=== PATIENT | male | born 1960 | race Caucasian/White ===

== ENCOUNTER 2019-10-08 03:24 | Inpatient (IN) ==
[2019-10-08] MEDS ORDERED: PHENERGAN PO ONE (03:45)
[2019-10-08] MEDS ORDERED: TYLENOL PO ONE (04:18)
[2019-10-08] MEDS ORDERED: NS 1,000 ML IV ONE ×4 (04:28→10:41)
--- NOTE | 2019-10-08 04:30 | PROVIDER DOCUMENTATION ---
HPI-Fever - General Chief Complaint: Flu Symptoms Stated Complaint: n/v aching all over,tach Time Seen by Provider: 10/08/19 03:45 Source: patient, police Allergies/Adverse Reactions: Patient Allergies Allergy/AdvReac Type Severity Reaction Status Date / Time fluphenazine [From Prolixin] Allergy Unknown Verified 10/08/19 03:29 haloperidol [From Haldol] Allergy Unknown Verified 10/08/19 03:30 Home Medications: Home Medication List Medication Instructions Recorded Confirmed Last Taken Type Atorvastatin Calcium [Lipitor] 10 mg PO DAILY 10/08/19 10/08/19 Unknown History Ginkgo Biloba 80 mg PO TID 10/08/19 10/08/19 Unknown History - History of Present Illness-Fever Nature of Presenting Problem: Patient is a 59 year old white male, prisoner at residential, who presents from senior care with reported fever and hypotension since yesterday. Review of Systems - Adult - REVIEW OF SYSTEMS - ADULT Constitutional: reports: chills, fever Eyes: reports: no symptoms reported Ears, Nose, Mouth & Throat: reports: other (nasal congestion) Cardiovascular: denies: chest pain Respiratory: reports: cough Gastrointestinal: reports: see HPI Genitourinary: reports: no symptoms reported Musculoskeletal: reports: muscle aches Integumentary: denies: rash Neurological: reports: see HPI Psychiatric: reports: anxiety Endocrine: reports: no symptoms reported Hematologic/Lymphatic: reports: no symptoms reported Allergic/Immunologic: reports: no symptoms reported All Other Systems: Reviewed and Negative Past History - Adult - PAST MEDICAL HISTORY-ADULT Review of Records: reports: Old Records Reviewed, Nursing Assessment Review, Medications Reviewed, Social history reviewed & non-contributory. Major Childhood Illnesses: reports: denies history Cardiovascular: reports: denies history Respiratory: reports: COPD Endocrine/Immune: reports: denies history - PRIOR SURGERIES/PROCEDURES Surgical/Procedure History: reports: none - FAMILY HISTORY Family History: reviewed, not pertinent - SOCIAL HISTORY Smoking: greater than 1 pack/day Substance Use: denies Living Situation: other (state fdc) Physical Exam-General - CONSTITUTIONAL General Appearance: alert, no apparent distress, other (ambulatory) - EYES Eyes: other (clear) - HEAD, EARS, NOSE, MOUTH & THROAT HENMT: other (nasal congestion) - NECK Neck: supple - RESPIRATORY Respiratory: no respiratory distress, no accessory muscle use, decreased breath sounds - CARDIOVASCULAR Cardiovascular: tachycardia - GASTROINTESTINAL (ABDOMEN) Abdominal Exam: soft, tenderness (vague). negative: guarding, rebound - LYMPHATIC Lymphatic: no adenopathy - MUSCULOSKELETAL Back Exam: normal inspection, no CVA tenderness Extremity: normal range of motion, non-tender Peripheral Pulses: radial (R): 2+, radial (L): 2+ - SKIN Integumentary: normal color, warm/dry - NEUROLOGIC Neurologic: grossly normal - PSYCHIATRIC Psych/Mental Status: oriented x 3, anxious Progress - PLAN OF CARE/RESULTS Progress/Plan/Lab Results: Vital Signs - 8 hr 10/08/19 03:24 10/08/19 05:09 10/08/19 06:14 Temperature 99.7 F H 101.5 F H 99.1 F Pulse Rate 118 H 113 H 103 H Respiratory Rate 20 20 20 Blood Pressure 91/62 106/75 110/72 O2 Sat by Pulse Oximetry 95 100 96 Laboratory Results - last 24 hr 10/08/19 10/08/19 10/08/19 04:00 04:46 04:46 WBC 18.14 H RBC 4.52 L Hgb 14.4 Hct 42.5 MCV 94.0 MCH 31.9 H MCHC 33.9 RDW Std Deviation 13.2 Plt Count 168 MPV 10.4 Immature Gran % (Auto) 0.2 Neut % (Auto) 79.9 H Lymph % (Auto) 8.8 L [place] % (Auto) 10.7 H Eos % (Auto) 0.2 Baso % (Auto) 0.2 Immature Gran # (Auto) 0.04 Neut # (Auto) 14.50 H Lymph # (Auto) 1.60 [place] # (Auto) 1.94 H Eos # (Auto) 0.03 Baso # (Auto) 0.03 Sodium 138 Potassium 3.8 Chloride 101 Carbon Dioxide 22 L Anion Gap 15 BUN 9 Creatinine 0.5 L Estimated GFR/1.73 m2 > 60 BUN/Creatinine Ratio 18 Glucose 107 H Calculated Osmolality 275 Calcium 9.1 Total Bilirubin 0.80 AST 22 ALT 25 Alkaline Phosphatase 78 Total Protein 7.1 Albumin 4.2 Globulin 3.0 Albumin/Globulin Ratio 1.0 Plasma Lactate Influenza A (Rapid) NEGATIVE Influenza B (Rapid) NEGATIVE 10/08/19 04:46 WBC RBC Hgb Hct MCV MCH MCHC RDW Std Deviation Plt Count MPV Immature Gran % (Auto) Neut % (Auto) Lymph % (Auto) [place] % (Auto) Eos % (Auto) Baso % (Auto) Immature Gran # (Auto) Neut # (Auto) Lymph # (Auto) [place] # (Auto) Eos # (Auto) Baso # (Auto) Sodium Potassium Chloride Carbon Dioxide Anion Gap BUN Creatinine Estimated GFR/1.73 m2 BUN/Creatinine Ratio Glucose Calculated Osmolality Calcium Total Bilirubin AST ALT Alkaline Phosphatase Total Protein Albumin Globulin Albumin/Globulin Ratio Plasma Lactate 0.8 Influenza A (Rapid) Influenza B (Rapid) Orders Category Date Time Status Admit - [facility] Routine AdmDCTranf 10/08/19 06:24 Active Activity - Strict Bedrest ORDERED Care 10/08/19 06:24 Active Orthostatic Vital Signs NOW Care 10/08/19 04:28 Active Resuscitation Status Routine Care 10/08/19 06:24 Ordered Vital Signs Order Q 4-HR ASSESS Care 10/08/19 06:24 Active Z-Document. for Tele Applied ORDERED Care 10/08/19 06:25 Active Heart Healthy Diet Diet 10/08/19 06:26 Active CHEST-2 VIEWS [RAD] Stat Exams 10/08/19 04:27 Taken BLOOD CULTURE [BLDCUL] Stat Lab 10/08/19 05:05 Ordered CBC WITH ELECTRONIC DIFF [HEME] Stat Lab 10/08/19 04:46 Completed CMP [COMPREHENSIVE METABOLIC PANEL] [CHEM] Stat Lab 10/08/19 04:[address] Stat Lab 10/08/19 04:00 Completed LACTATE, PLASMA [CHEM] Stat Lab 10/08/19 04:46 Completed URINALYSIS W/POSS RFLX CULT [URINALYSIS] Stat Lab 10/08/19 05:57 Uncollected 0.9% Sodium Chloride Inj [Ns] 1,000 ml Med 10/08/19 04:28 Discontinued IV 999 mls/hr 0.9% Sodium Chloride Inj [Ns] 1,000 ml Med 10/08/19 05:56 Active IV 999 mls/hr Acetaminophen [Tylenol] Med 10/08/19 04:18 Discontinued 650 mg PO NOW ONE Acetaminophen [Tylenol] Med 10/08/19 06:24 Ordered 650 mg PO Q6H PRN PRN Albuterol 2.5MG/Ipratrop 0.5MG [Duoneb (A & A)] Med 10/08/19 07:30 Ordered 3 ml INH RTQ4H Azithromycin 500 mg/Ns [Zithromax 500 mg/Ns] Med 10/08/19 06:24 Active 500 mg in 250 ml IV NOW Azithromycin 500 mg/Ns [Zithromax 500 mg/Ns] Med 10/09/19 06:30 Active 500 mg in 250 ml IV Q24H CefTRIAXONE [Rocephin] 1 gm Med 10/08/19 05:56 Discontinued 0.9% Sodium Chloride Inj [Ns] 50 ml IV NOW Promethazine [Phenergan] Med 10/08/19 03:45 Discontinued 25 mg PO NOW ONE Aerosol Treatments Routine Oth 10/08/19 06:26 Active Aerosol Treatments Stat Oth 10/08/19 06:26 Active Oxygen Device Routine Oth 10/08/19 06:26 Active Telemetry [OM.EQ] Routine Oth 10/08/19 06:24 Active Transfer/Admit Order [TRANSFER] Routine Transfer 10/08/19 06:26 Ordered Result Diagrams: 10/08/19 04:46 10/08/19 04:46 - XRAY 1 XRAY Study: Chest XRAY Interpretation: bilateral hilar infiltrates, emphysematous changes - CONSULTS/PCP/HOSPITALIST Notification #1 *Consult/PCP/Hospitalist*: Dr. Munoz, hospitalist Time Discussed: 06:20 Consult Disposition: Admit Departure - Departure Date of Disposition Decision: 10/08/19 Time of Disposition Decision: 06:28 DIAGNOSIS: Pneumonia Qualifiers: Pneumonia type: due to unspecified organism Laterality: bilateral Lung location: unspecified part of lung Qualified Code(s): J18.9 - Pneumonia, unspecified organism Disposition: ADMITTED INPATIENT 09 Certified Medical Emergency: Emergent Condition: Stable Referrals and Follow-Ups: None,PCP [Primary Care Provider] - - Critical Care Note This patient required my direct & personal management of CC.: No Attestation - Physician/ ENIO Attestation Patient care was provided by Advanced Practice Provider:: No The physician spent face to face time with patient:: Yes Advanced Practice Provider documentation review:: Supervising physician onsite and consulted in the evaluation and care of this patient. The physician did have a face to face encounter with the patient.
[2019-10-08 05:11] LABS: INFLUENZA A NEGATIVE (NEGATIVE); INFLUENZA B NEGATIVE (NEGATIVE)
[2019-10-08 05:21] LABS: BASO# 0.03 X1000 (0.0-0.2); BASO% 0.2 % (0.0-0.8); EOS# 0.03 X1000 (0.0-0.7); EOS% 0.2 % (0.0-10.0); HEMATOCRIT 42.5 % (42.0-52.0); HEMOGLOBIN 14.4 g/dL (14.0-18.0); IMM GRAN# 0.04 X1000 (0.0-0.04); IMM GRAN% 0.2 % (0.0-0.5); LYMPH% 8.8 % (20.5-51.1); MCH 31.9 PG (27-31); MCHC 33.9 g/dL (33-37); MONO# 1.94 X1000 (0.11-0.59); MONO% 10.7 % (1.7-9.3); MPV 10.4 FL (7.4-10.4); NEUT% 79.9 % (42.2-75.2); PLT 168 X1000 (130-400); RBC 4.52 XMIL (4.7-6.1); RDW 13.2 % (11.5-14.5); WBC 18.14 X1000 (4.8-10.8)
[2019-10-08 05:36] LABS: AGAP 15; ALBUMIN 4.2 g/dL (3.5-5.0); ALKALINE PHOSPHATASE 78 U/L (32-122); BUN 9 mg/dL (8-22); CALCIUM 9.1 mg/dL (8.8-10.2); CHLORIDE 101 mmol/L (98-107); COSMO 275; CREATININE 0.5 mg/dL (0.7-1.2); ESTIMATED GFR > 60; GLUCOSE 107 mg/dL (70-104); GOT 22 U/L (10-34); GPT 25 U/L (10-44); POTASSIUM 3.8 mmol/L (3.5-5.1); SODIUM 138 mmol/L (136-145); TCO2 22 mmol/L (25-35); TOTAL PROTEIN 7.1 g/dL (6.3-8.3)
[2019-10-08] MEDS ORDERED: ROCEPHIN 1 GM in NS 50 ML IV ONE (05:56)
[2019-10-08] MEDS ORDERED: TYLENOL PO PRN (06:24)
[2019-10-08] MEDS ORDERED: ZITHROMAX 500 MG/NS 500 MG/250 ML IVPB IV ONE (06:24)
[2019-10-08 07:02] LABS: URINE SOURCE CLEAN CATCH
[2019-10-08 07:15] LABS: UR EPITHELIAL CELLS <10 /HPF (<10); URINE BACTERIA NEGATIVE /HPF; URINE RBC <10 /HPF (<10); URINE WBC <10 /HPF (<10)
[2019-10-08 07:41] LABS: BILIRUBIN URINE NEGATIVE (NEGATIVE); BLOOD URINE NEGATIVE (NEGATIVE); COLOR YELLOW; GLUCOSE URINE NEGATIVE (NEGATIVE); KETONE URINE 10 mg/dL (NEGATIVE); LEUKOCYTES URINE NEGATIVE (NEGATIVE); NITRITE URINE NEGATIVE (NEGATIVE); PROTEIN URINE NEGATIVE (NEGATIVE); SP GRAVITY URINE 1.006; TURBIDITY URINE HAZY (CLEAR); UROBILINOGEN URINE NORMAL (NORMAL)
[2019-10-08] MEDS: DUONEB (A & A) INH SCH ×5 (08:06→23:20)
[2019-10-08 08:24] LABS: INR 1.18; PROTIME 15.6 Seconds (11.0-16.0)
[2019-10-08 08:25] LABS: PTT 34.6 Seconds (22.3-41.8)
--- NOTE | 2019-10-08 10:05 | Diag Imaging Result Doc PS360 ---
EXAM: CHEST-2 VIEWS - 10/08/2019 HISTORY: fever TECHNIQUE: Chest two views COMPARISON: None. FINDINGS: Heart size is normal. There are COPD changes. There are ill-defined basilar infiltrates. There is no dense consolidation, pleural effusion, or pneumothorax identified. IMPRESSION: COPD changes. Ill-defined basilar infiltrates which may relate to COPD exacerbation and/or bronchopneumonia. Electronically signed by Thierno Miles 10/08/2019 10:03 AM
[2019-10-08] MEDS ORDERED: NS 150 ML IV ONE (10:31)
[2019-10-08] MEDS ORDERED: NS 1,000 ML IV SCH (11:15)
[2019-10-08] MEDS ORDERED: ZOFRAN IV PRN (15:09)
[2019-10-08] MEDS ORDERED: ROBITUSSIN-DM PO PRN (15:10)
[2019-10-08] MEDS: NS 1,000 ML IV SCH (16:10)
[2019-10-08] MEDS: MAXIPIME 1 GM in NS 50 ML IV SCH (16:19)
[2019-10-08] MEDS: ZYVOX 600 MG/D5W 600 MG/300 ML IVPB IV SCH (16:19)
[2019-10-09] MEDS: DUONEB (A & A) INH SCH ×6 (03:31→23:47)
[2019-10-09] MEDS: MAXIPIME 1 GM in NS 50 ML IV SCH ×2 (03:50→15:13)
[2019-10-09] MEDS: ZYVOX 600 MG/D5W 600 MG/300 ML IVPB IV SCH ×2 (04:40→17:17)
[2019-10-09 06:12] LABS: BASO# 0.01 X1000 (0.0-0.2); BASO% 0.1 % (0.0-0.8); EOS# 0.13 X1000 (0.0-0.7); EOS% 1.5 % (0.0-10.0); HEMATOCRIT 36.6 % (42.0-52.0); HEMOGLOBIN 11.9 g/dL (14.0-18.0); LYMPH# 1.76 X1000 (1.2-3.4); LYMPH% 20.5 % (20.5-51.1); MCH 31.4 PG (27-31); MCHC 32.5 g/dL (33-37); MCV 96.6 FL (81-99); MONO# 0.71 X1000 (0.11-0.59); MONO% 8.3 % (1.7-9.3); MPV 10.6 FL (7.4-10.4); NEUT# 5.99 X1000 (1.4-6.5); NEUT% 69.6 % (42.2-75.2); PLT 125 X1000 (130-400); RBC 3.79 XMIL (4.7-6.1); RDW 13.2 % (11.5-14.5)
[2019-10-09] MEDS: PRILOSEC PO SCH (06:17)
[2019-10-09] MEDS ORDERED: ZITHROMAX 500 MG/NS 500 MG/250 ML IVPB IV SCH (06:30)
[2019-10-09 06:35] LABS: AGAP 8; ALB/GLOB RATIO 1.3; ALBUMIN 3.2 g/dL (3.5-5.0); ALKALINE PHOSPHATASE 59 U/L (32-122); BUN 7 mg/dL (8-22); CALCIUM 8.3 mg/dL (8.8-10.2); CHLORIDE 106 mmol/L (98-107); COSMO 283; CREATININE 0.8 mg/dL (0.7-1.2); ESTIMATED GFR > 60; GLUCOSE 170 mg/dL (70-104); GOT 15 U/L (10-34); GPT 17 U/L (10-44); POTASSIUM 3.8 mmol/L (3.5-5.1); SODIUM 141 mmol/L (136-145); TCO2 27 mmol/L (25-35); TOTAL BILIRUBIN 0.54 mg/dL (0.20-1.00); TOTAL PROTEIN 5.7 g/dL (6.3-8.3)
--- NOTE | 2019-10-09 07:30 | Diag Imaging Result Doc PS360 ---
CHEST-PORTABLE - 10/09/2019 INDICATION: pna COMPARISON: 10/08/2019 FINDINGS: Lung volumes are much lower. There is accentuation in some atelectasis in both lung bases. There is probably a small left basilar infiltrate. Heart size is normal. Pulmonary vascularity is grossly normal. IMPRESSION: Much lower lung volumes. Persistent faint infiltrate in the left lung base suggests bronchial pneumonia. Electronically signed by Manuel Cisse 10/09/2019 7:28 AM
[2019-10-09] MEDS: LOVENOX SUBQ SCH (08:40)
[2019-10-09] MEDS: NS 1,000 ML IV SCH ×2 (08:40→17:17)
--- NOTE | 2019-10-09 19:42 | PROGRESS NOTE ---
DATE: 10/09/2019 SUBJECTIVE: The patient was transferred from [place] yesterday after being seen by Dr. Munoz. Today the patient states that he feels better. He states that his shortness of breath has improved. He states that he is not coughing as much as he was when he first came to the hospital yesterday. OBJECTIVE: Vital Signs: Temperature 98.7 degrees, blood pressure 102/62, heart rate 74, respirations 15, O2 saturation 97% on 1 L nasal cannula, intake 1.4 L, output 1.7 L. General: This is a chronically ill-appearing elderly male lying in bed in no acute distress. Heart: S1, S2 normal. Regular rate and rhythm. Lungs: Equal air entry bilaterally. No wheezing, no rales, no rhonchi. Abdomen: Positive bowel sounds. Soft, nontender, nondistended. Extremities: No edema, no cyanosis. Neuro: The patient is alert and oriented x3. LABS: White blood cell count 8.6, hemoglobin 11, hematocrit 36, platelets 125,000. Sodium 141, potassium 3.8, chloride 106, CO2 27, BUN 7, creatinine 0.8, glucose 170. Chest x-ray shows a left base infiltrate. ASSESSMENT AND PLAN: 1. Sepsis secondary to pneumonia. The patient is improving. So far the blood and sputum cultures remain negative. Will continue with broad-spectrum antibiotics and IV fluids. 2. Left lower lobe pneumonia. Continue with antibiotics, bronchodilator therapy and supplemental oxygen. 3. Tobacco dependence. The patient has been counseled about smoking cessation. 4. Leukocytosis. Resolved. 5. Hyperglycemia. We will check a hemoglobin A1c. 6. Gastroesophageal reflux disease. Continue on omeprazole. 7. Deep vein thrombosis prophylaxis. Continue on Lovenox. cc: Cyndie Lorenzo MD MTDD
[2019-10-10] MEDS: MAXIPIME 1 GM in NS 50 ML IV SCH (03:14)
[2019-10-10] MEDS: DUONEB (A & A) INH SCH ×3 (04:28→11:13)
--- NOTE | 2019-10-10 04:33 | EKG Report ---
Test Performed on : 10/10/2019 00:30:52 AM Test Reason : SR to Afib Blood Pressure : / mmHG Vent. Rate : 097 BPM Atrial Rate : 220 BPM P-R Int : 000 ms QRS Dur : 092 ms QT Int : 348 ms P-R-T Axes : 000 083 079 degrees QTc Int : 441 ms Atrial fibrillation. Abnormal ECG No previous ECGs available Confirmed by Maren Cooney MD ([id number]) on 10/10/2019 7:31:23 AM
[2019-10-10] MEDS: PRILOSEC PO SCH ×2 (05:07→06:18)
[2019-10-10] MEDS: ZYVOX 600 MG/D5W 600 MG/300 ML IVPB IV SCH (05:07)
[2019-10-10] MEDS: NS 1,000 ML IV SCH (05:08)
--- NOTE | 2019-10-10 06:03 | EKG Report ---
Test Performed on : 10/10/2019 05:08:51 AM Test Reason : Afib to SR Blood Pressure : / mmHG Vent. Rate : 084 BPM Atrial Rate : 084 BPM P-R Int : 186 ms QRS Dur : 090 ms QT Int : 370 ms P-R-T Axes : 070 062 059 degrees QTc Int : 437 ms Normal sinus rhythm. Normal ECG When compared with ECG of 10-OCT-2019 00:30, (Unconfirmed) Sinus rhythm. has replaced Atrial fibrillation. Confirmed by Maren Cooney MD ([id number]) on 10/10/2019 7:31:30 AM
[2019-10-10 06:15] LABS: BASO# 0.01 X1000 (0.0-0.2); BASO% 0.1 % (0.0-0.8); EOS# 0.18 X1000 (0.0-0.7); EOS% 2.7 % (0.0-10.0); HEMATOCRIT 35.9 % (42.0-52.0); HEMOGLOBIN 11.9 g/dL (14.0-18.0); LYMPH# 1.64 X1000 (1.2-3.4); LYMPH% 24.2 % (20.5-51.1); MCH 31.7 PG (27-31); MCHC 33.1 g/dL (33-37); MCV 95.7 FL (81-99); MONO# 0.72 X1000 (0.11-0.59); MONO% 10.6 % (1.7-9.3); MPV 10.5 FL (7.4-10.4); NEUT# 4.23 X1000 (1.4-6.5); NEUT% 62.4 % (42.2-75.2); PLT 125 X1000 (130-400); RBC 3.75 XMIL (4.7-6.1); WBC 6.78 X1000 (4.8-10.8)
[2019-10-10 06:28] LABS: HEMOGLOBIN A1C 5.2 % (4.8-6.0)
[2019-10-10 06:36] LABS: AGAP 9; ALB/GLOB RATIO 1.3; ALBUMIN 3.3 g/dL (3.5-5.0); ALKALINE PHOSPHATASE 61 U/L (32-122); BUN 5 mg/dL (8-22); CALCIUM 8.4 mg/dL (8.8-10.2); CHLORIDE 104 mmol/L (98-107); COSMO 273; CREATININE 0.6 mg/dL (0.7-1.2); ESTIMATED GFR > 60; GLUCOSE 101 mg/dL (70-104); GOT 15 U/L (10-34); GPT 16 U/L (10-44); POTASSIUM 3.3 mmol/L (3.5-5.1); SODIUM 138 mmol/L (136-145); TCO2 25 mmol/L (25-35); TOTAL PROTEIN 5.8 g/dL (6.3-8.3)
--- NOTE | 2019-10-10 06:37 | Diag Imaging Result Doc PS360 ---
EXAM: CHEST-1 VIEW HISTORY: pneumonia TECHNIQUE: Single view COMPARISON: 10/09/2019 FINDINGS: The lungs are well expanded. The heart is not enlarged. The vessels are not distended. There are small left infiltrates. No effusion identified. IMPRESSION: Interval improvement Electronically signed by Ron Lawson 10/10/2019 6:34 AM
[2019-10-10] MEDS ORDERED: KLOR-CON PO SCH (10:15)
[2019-10-10] MEDS: LOVENOX SUBQ SCH (10:19)
[2019-10-10 11:35] VITALS: BP 112/73
--- NOTE | 2019-10-11 03:47 | DISCHARGE SUMMARY ---
ADMISSION DATE: 10/08/2019 DISCHARGE DATE: 10/10/2019 DISCHARGE DISPOSITION: To [facility]. DISCHARGE CONDITION: Hemodynamically stable. The patient denies chest pain shortness of breath. He has a cough with yellowish expectoration. We discussed about treatment for pneumonia. I answered all of his questions. DISCHARGE DIAGNOSES: 1. Sepsis due to left lower lobe pneumonia. 2. Hypokalemia. 3. Paroxysmal atrial fibrillation episode. 4. Active tobacco abuse. OTHER DIAGNOSES: 1. Being incarcerated. 2. Hyperlipidemia. DISCHARGE MEDICATION: 1. Atorvastatin 10 mg daily. 2. Levofloxacin 500 mg daily for 4 days. VITALS: At time of discharge, temperature 98.5 degrees, pulse 78, respiratory rate 17, blood pressure 112/73. He is saturating 98% on room air. PHYSICAL EXAMINATION: General: He is not in acute distress. HEENT: Oral cavity is moist. Lungs: Air entry bilaterally equal. No wheeze or crackles. Heart: S1 normal. No murmur, rub, or gallop. Abdomen: Soft, nontender. Extremities: No lower extremity edema. Neurologic: He is alert and oriented x3. LABORATORY DATA: At the time of discharge, WBC 6000, which improved from 18,000 on presentation, hemoglobin 11.9, platelet 125,000. BUN 5, creatinine 0.6. Influenza screen was negative. Microbiology during hospital admission, blood culture, sputum culture so far has not shown any growth. IMAGING: During hospital admission, chest x-ray on 10/08/2019 had ill-defined basilar infiltrates due to bronchopneumonia. Electrocardiogram on 1 of the instances had atrial fibrillation. A repeat electrocardiogram 4 hours later had normal sinus rhythm. HOSPITAL COURSE SUMMARY: Mr. Vargas is a [id number] man who is a prisoner, who came in from the [facility] with chief complaints of fever and hypotension about 24 hours duration. On presentation, he was found to have temperature of 101.5 degrees, pulse of 113, respiratory rate of 20 and blood pressure of 90/60. He was resuscitated with intravenous fluids and hospitalist team was consulted for further management. He was diagnosed with sepsis due to bilateral lower lobe pneumonia, was started on intravenous fluids, intravenous antibiotics and was kept in the hospital 48 hours. He had significant clinical improvement in 48 hours with decrease in WBC count, normalization of blood pressure, and improvement in symptoms and it was decided to discharge him on oral Levaquin. He was counseled about smoking cessation. TIME SPENT: Was 25 minutes. cc: Neil Valdovinos MD
== END 2019-10-10 13:15 | DRG 871 ==
LOC: P.ED 03:24 → 2N 11:08 → SUATTDRO 11:08
PROVIDERS: ATTEND Internal Medicine